=== PATIENT | male | born 1960 | race Caucasian/White ===

== ENCOUNTER 2016-06-21 09:23 | Emergency (ER) | payer BC ==
[2016-06-21] MEDS ORDERED: K-TAB ER20 ME1 PO (09:37)
[2016-06-21] MEDS ORDERED: CIALIS5 M1 PO (09:37)
[2016-06-21] MEDS ORDERED: BUPROPION HCL150 M3 PO (09:37)
[2016-06-21] MEDS ORDERED: PRINIVIL10 M1 PO (09:37)
[2016-06-21] MEDS ORDERED: LIPITOR40 M1 PO (09:37)
[2016-06-21] MEDS ORDERED: NEXIUM40 M1 PO (09:37)
[2016-06-21] MEDS ORDERED: COMPLETE TABLE1 EACH PO (09:38)
[2016-06-21] MEDS ORDERED: FLOMAX0.4 M1 PO (09:38)
[2016-06-21] MEDS ORDERED: PERCOCET 5-3251 EACH PO (12:17)
[2016-06-21] MEDS ORDERED: CYCLOBENZAPRINE5 M1 PO (12:17)
== END 2016-06-21 12:28 ==
LOC: EDMED 09:23
DX: M54.5 Low back pain (principal); I10 Essential (primary) hypertension; N40.0 Benign prostatic hyperplasia without lower urinary tract symptoms; K21.9 Gastro-esophageal reflux disease without esophagitis; Z79.899 Other long term (current) drug therapy
CPT/HCPCS: J1170; J2360